=== PATIENT | male | born 1940 | race Caucasian/White ===

== ENCOUNTER → 2017-05-07 | Outpatient (CLI) | payer OTHER ==
[~2017-05-07] MED LIST: ACCUPRIL40 MG PO; CELEBREX 200 M200 MG PO; CENTRUM SILVER1 EAC2 PO; COLACE100 MG PO; ECHINACEA350 MG PO; GARLIC100 MG PO; GREEN TEA EXTR250 MG PO; OMEGA-31000 M1 PO; PERCOCET 10-321 EACH PO; TENORMIN25 MG PO; TURMERIC500 MG PO; VITAMIN E400 UNI2 PO; XARELTO20 MG PO; ZETIA10 MG PO; [UNRECOGNIZED DRUG - OTHER] PO
--- NOTE | ~2017-05-07 | 2DMMODE ---
[facility] [address] 2 D/M-MODE ECHOCARDIOGRAM Name: DANASHY GARZA Room #: REG [facility]#: [id number] Admission: 05/07/17 Attend Phys: Dylan Wright MD Discharge: Date of : 44 Date of Service: 05/07/17 0949 Report #: [id number] THIS REPORT FOR: //name// APPROVED REPORT Study performed: 05/07/2017 08:56:37 EXAM: Comprehensive 2D, Doppler, and color-flow Echocardiogram Patient Location: Echo lab Other Information Study Quality: Good Indications Atrial Fibrillation Hypertension/HDD 2D Dimensions RVDd: 31.43 mm LVEF(%): 59.93 (>50%) IVSd: 12.64 (7-11mm) LVOT Diam: 23.40 (18-24mm) LVDd: 49.96 mm PWd: 11.72 (7-11mm) Ascending Ao: 42.16 (22-36mm) LVDs: 33.95 (25-40mm) Aortic Root: 30.57 mm IVC: 14.00 mm Woodson's LVEF: 59.93 % Volumes Left Atrial Volume (Systole) Single Plane 4CH: 55.91 mL Single Plane 2CH: 37.71 mL LA ESV Index: 23.00 mL/m2 Aortic Valve AoV Peak Guru.: 2.16 m/s AO Peak Gr.: 18.69 mmHg LVOT Max P.08 mmHg LVOT Max V: 1.23 m/s VLADIMIR Vmax: 2.45 cm2 Mitral Valve E/A Ratio: 0.7 MV Decel. Time: 375.30 ms MV E Max Guru.: 0.71 m/s MV A Guru.: 1.06 m/s MV PHT: 108.84 ms IVRT: 152.25 ms [facility] [address] [address] 2 D/M-MODE ECHOCARDIOGRAM Name: SHY CORTEZ Room #: REG [facility]#: [id number] Admission: 05/07/17 Attend Phys: Dylan Wright MD Discharge: Date of : 44 Date of Service: 05/07/17 0949 Report #: [id number] Pulmonary Valve PV Peak Guru.: 1.06 m/s PV Peak Gr.: 4.52 mmHg Pulmonary Vein P Vein S: 0.77 m/s P Vein A: 0.21 m/s P Vein D: 0.46 m/s P Vein A Dur.: 72.7 msec P Vein S/D Ratio: 1.67 Tricuspid Valve TR Peak Guru.: 3.38 m/s RAP Estimate: 5.00 mmHg TR Peak Gr.: 45.77 mmHg Left Ventricle The left ventricle is normal size. Mild concentric left ventricular hypertrophy. The left ventricular systolic function is normal. The left ventricular ejection fraction is within the normal range. LVEF is 55-60%. Mild diastolic dysfunction is present (impaired relaxation pattern). Right Ventricle The right ventricle is normal size. The right ventricular systolic function is normal. Atria The left atrium size is normal. The right atrium size is normal. Aortic Valve Mild aortic valve sclerosis. Mild aortic regurgitation. There is no aortic valvular stenosis. Mitral Valve Mild mitral annular calcification. Trace mitral regurgitation. No evidence of mitral valve stenosis. Tricuspid Valve The tricuspid valve is normal in structure. There is trace tricuspid regurgitation. The right atrial pressure is estimated at 5 mmHg. Pulmonic Valve The pulmonary valve is normal in structure. Trace pulmonic regurgitation. Great Vessels [facility] [address] [place] [address] 2 D/M-MODE ECHOCARDIOGRAM Name: DANASHY GREG Room #: REG [facility]#: [id number] Admission: 05/07/17 Attend Phys: Dylan Wright MD Discharge: Date of : 44 Date of Service: 05/07/17 0949 Report #: [id number] Aortic root is dilated at 4.2 cm IVC is normal in size and collapses >50% with inspiration. <Conclusion> The left ventricle is normal size. Mild concentric left ventricular hypertrophy. The left ventricular systolic function is normal. Mild diastolic dysfunction is present (impaired relaxation pattern). The right ventricle is normal size. The left atrium size is normal. Mild aortic valve sclerosis. Mild aortic regurgitation. Mild mitral annular calcification. Trace mitral regurgitation. <ELECTRONICALLY SIGNED> By: Dylan Wright MD 05/07/1749 8 8 Dylan Wright MD /INF
== END ==
LOC: CV 04-20 11:40
DX: I48.91 Unspecified atrial fibrillation (principal); I08.3 Combined rheumatic disorders of mitral, aortic and tricuspid valves; I10 Essential (primary) hypertension

== ENCOUNTER → 2018-06-21 | Outpatient (CLI) | payer OTHER ==
--- NOTE | ~2018-06-21 | 2DMMODE ---
[facility] [address] [place] [address] 2 D/M-MODE ECHOCARDIOGRAM Name: DANASHY GARZA Room #: REG [facility]#: [id number] Admission: 06/21/18 Attend Phys: Dylan Wright MD Discharge: Date of : 44 Date of Service: 06/21/18 0958 Report #: [id number] THIS REPORT FOR: //name// APPROVED REPORT Study performed: 06/21/2018 08:56:03 EXAM: Comprehensive 2D, Doppler, and color-flow Echocardiogram Patient Location: Echo lab Status: routine BSA: 2.13 HR: 77 bpm BP: 122/92 mmHg Other Information Study Quality: Adequate Indications Atrial Fibrillation 2D Dimensions RVDd: 32.84 mm LVEF(%): 53.07 (>50%) IVSd: 13.54 (7-11mm) LVOT Diam: 20.83 (18-24mm) LVDd: 44.11 mm PWd: 13.62 (7-11mm) Ascending Ao: 42.58 (22-36mm) LVDs: 32.14 (25-40mm) Aortic Root: 37.29 mm IVC: 22.00 mm Woodson's LVEF: 53.07 % Volumes Left Atrial Volume (Systole) Single Plane 4CH: 43.44 mL Single Plane 2CH: 59.87 mL LA ESV Index: 26.00 mL/m2 Aortic Valve AoV Peak Guru.: 1.86 m/s AO Peak Gr.: 13.91 mmHg LVOT Max P.09 mmHg LVOT Max V: 1.01 m/s VLADIMIR Vmax: 1.85 cm2 AI Vmax: 3.91 m/s AI Sedgwick: 2.09 m/s2 AI PHT: 544.17 ms Mitral Valve [facility] [place] [address] 2 D/M-MODE ECHOCARDIOGRAM Name: DANASHY GREG Room #: REG [facility]#: [id number] Admission: 06/21/18 Attend Phys: Dylan Wright MD Discharge: Date of : 44 Date of Service: 06/21/18 0958 Report #: [id number] MV Decel. Time: 210.73 ms MV E Max Guru.: 0.85 m/s IVRT: 107.27 ms Pulmonary Valve PV Peak Guru.: 0.85 m/s PV Peak Gr.: 2.88 mmHg Tricuspid Valve TR Peak Guru.: 2.30 m/s RAP Estimate: 10.00 mmHg TR Peak Gr.: 21.25 mmHg PA Pressure: 31.00 mmHg Left Ventricle The left ventricle is normal size. Mild concentric left ventricular hypertrophy. The left ventricular systolic function is normal. The left ventricular ejection fraction is within the normal range. LVEF is 55%. Right Ventricle The right ventricle is normal size. The right ventricular systolic function is normal. Atria Left atrium is mildly dilated. Right atrium is mildly dilated. Aortic Valve Mild aortic valve sclerosis. Mild aortic regurgitation. There is no aortic valvular stenosis. Mitral Valve Mild mitral annular calcification. Mild mitral regurgitation. No evidence of mitral valve stenosis. Tricuspid Valve The tricuspid valve is normal in structure. Mild tricuspid regurgitation. Pulmonic Valve Pulmonic valve is not well visualized. There is no pulmonic valvular regurgitation. Great Vessels Aortic root is upper limits of normal in size at 3.7 cm. The ascending aorta is mildly dilated at 4.3 cm. IVC is mildly dilated and collapses >50% with inspiration. [facility] [address] [place] [address] 2 D/M-MODE ECHOCARDIOGRAM Name: SHY CORTEZ Room #: REG [facility]#: [id number] Admission: 06/21/18 Attend Phys: Dylan Wright MD Discharge: Date of : 44 Date of Service: 06/21/18 0958 Report #: [id number] Pericardium There is no pericardial effusion. <Conclusion> The left ventricle is normal size. Mild concentric left ventricular hypertrophy. The left ventricular systolic function is normal. The right ventricle is normal size. Left atrium is mildly dilated. Right atrium is mildly dilated. Mild aortic valve sclerosis. Mild aortic regurgitation. Mild mitral regurgitation. Mild tricuspid regurgitation. The ascending aorta is mildly dilated at 4.3 cm. There is no pericardial effusion. <ELECTRONICALLY SIGNED> By: Dylan Wright MD 06/21/1858 7 7 Dylan Wright MD /INF
== END ==
LOC: CV 06:26
DX: I08.3 Combined rheumatic disorders of mitral, aortic and tricuspid valves (principal); I48.0 Paroxysmal atrial fibrillation

== ENCOUNTER 2018-11-11 15:18 | Inpatient (IN) | payer OTHER ==
[~2018-11-11] VITALS: Ht 182.9 cm; Wt 88.4 kg
--- NOTE | ~2018-11-11 | EKG ---
[address] [place] [address] ELECTROCARDIOGRAM REPORT Name: DANASHYSONU GARZA Room #: 205-P [facility] IN M.R.#: [id number] Admission: 11/11/18 Attend Phys: Stanislav Charlton MD Discharge: 11/12/18 Date of : 44 Report #: [id number] THIS REPORT FOR: //name// [facility] Test Date: 2018-11-15 Test Time: 20:29:08 Pat Name: SHY CORTEZ Department: Room: 214 P Gender: M Clerk Guide: loli : 1940 Requested By: Dylan Wright Order Number: [id number] MD: Measurements Intervals [place] Rate: 81 P: VA: QRS: -3 QRSD: 106 T: 33 QT: 427 QTc: 496 Interpretive Statements Atrial fibrillation Low voltage, extremity leads Abnormal R-wave progression, late transition Borderline prolonged QT interval Baseline wander in lead(s) V4,V6 Compared to ECG 11/15/2018 08:29:12 No significant changes [email or web address] By: 28 28 Epiphany Epiphany, /EPI
[2018-11-11 14:30] VITALS: BP 114/74
[2018-11-11 16:03] LABS: INR 1.2; PROTIME 12.7 Seconds (9.3-11.4)
[2018-11-11 16:08] LABS: CHOLESTEROL 154 mg/dL (<200); HDL CHOLESTEROL 31 mg/dL (>40); LDL CHOLESTEROL 85 mg/dL (<100); TRIGLYCERIDE 193 mg/dL (<150); VLDL 39 mg/dL (<40)
[2018-11-11] MEDS ORDERED: CARDIZEM CD240 MG PO (16:10)
[2018-11-11 16:11] LABS: SERUM ASSESSMENT Clear
[2018-11-11] MEDS ORDERED: ZOCOR20 MG PO (16:11)
[2018-11-11] MEDS ORDERED: COZAAR 25 MG TA25 M1 PO (16:11)
--- NOTE | 2018-11-11 18:28 | NUR ---
ASSUMED PATIENT CARE THIS AFTERNOON. PATIENT DIRECT ADMISSION FROM [facility]. UP AD [facility]. NO N/V, N/T STATED. PATIENT STATES NO CHEST PAIN AT THIS TIME. JACKER IN PLACE. TOLERATING DIET. VOIDING PER BATHROOM.
[2018-11-11 19:12] VITALS: BP 98/72
[2018-11-11] MEDS ORDERED: OXYBUTYNIN 5 MG5 M2 PO (19:16)
[2018-11-12 00:06] VITALS: BP 107/69
[2018-11-12 04:34] VITALS: BP 104/64
--- NOTE | 2018-11-12 05:27 | NUR ---
ASSUMED PT CARE AT 1900 WITH NO SIGN OF DISTRESS NOTED IN PT, UPON REPORT PT IS NOTED TO BE SLEEPING. PT IS STABLE UPON WAKING WAKING UP. ASSESSMENT COMPLETED AND DOCUMENTED, DENIES ANY NEED AT THIS TIME. PT IS STABLE, VITAL SIGN STABLE, PT IS NOTED TO BE IN AFIB.
[2018-11-12 07:35] VITALS: BP 96/71
--- NOTE | 2018-11-12 07:57 | 2DMMODE ---
[facility] [address] [place] [address] 2 D/M-MODE ECHOCARDIOGRAM Name: DANASHY GARZA Room #: 205-P ADM IN ..#: [id number] Admission: 11/11/18 Attend Phys: Stanislav Charlton MD Discharge: Date of : 44 Date of Service: 11/12/18 0757 Report #: [id number] THIS REPORT FOR: //name// APPROVED REPORT Study performed: 11/12/2018 07:00:34 EXAM: Comprehensive 2D, Doppler, and color-flow Echocardiogram Patient Location: Bedside Room #: 205 Status: routine BSA: 2.10 HR: 78 bpm BP: 104/64 mmHg Rhythm: Atrial Fibrillation Other Information Study Quality: Adequate Technically limited study due to lung artifact. Indications Chest Pain Hx: Afib, HTN, HLP. 2D Dimensions RVDd: 30.69 mm IVSd: 11.57 (7-11mm) LVOT Diam: 20.91 (18-24mm) LVDd: 47.40 mm PWd: 11.09 (7-11mm) Ascending Ao: 41.36 (22-36mm) LVDs: 33.09 (25-40mm) Aortic Root: 40.27 mm Volumes Left Atrial Volume (Systole) Single Plane 4CH: 51.49 mL Single Plane 2CH: 74.59 mL LA ESV Index: 33.00 mL/m2 Aortic Valve AoV Peak Guru.: 1.72 m/s AO Peak Gr.: 11.97 mmHg LVOT Max P.79 mmHg AO Mean Gr.: 7.54 mmHg AO V2 Mean: 1.32 m/s LVOT Max V: 0.97 m/s AO V2 VTI: 29.43 cm VLADIMIR Vmax: 1.94 cm2 [facility] [address] [place] [address] 2 D/M-MODE ECHOCARDIOGRAM Name: DANASHY GREG Room #: 205-P [facility] IN M.R.#: [id number] Admission: 11/11/18 Attend Phys: Stanislav Charlton MD Discharge: Date of : 44 Date of Service: 11/12/18 0757 Report #: [id number] Mitral Valve MV Decel. Time: 203.07 ms MV E Max Guru.: 0.83 m/s Pulmonary Valve PV Peak Guru.: 0.67 m/s PV Peak Gr.: 1.80 mmHg Tricuspid Valve TR Peak Guru.: 1.92 m/s RAP Estimate: 5.00 mmHg TR Peak Gr.: 14.69 mmHg PA Pressure: 20.00 mmHg Left Ventricle The left ventricle is normal size. There is normal LV segmental wall motion. Mild concentric left ventricular hypertrophy. The left ventricular systolic function is normal. LVEF is 50-55%. This study is not technically sufficient to allow evaluation of the LV diastolic function due to atrial fibrillation. Right Ventricle The right ventricle is normal size. The right ventricular systolic function is normal. Atria Both atria measure at the upper limits of normal. Aortic Valve The aortic valve is moderately sclerotic. Mild aortic regurgitation. There is no aortic valvular stenosis. Mitral Valve Mild mitral annular calcification. Trace mitral regurgitation. No evidence of mitral valve stenosis. Tricuspid Valve The tricuspid valve is normal in structure. Trace tricuspid regurgitation. Estimated PAP is 20mmHg. Pulmonic Valve The pulmonary valve is normal in structure. Trace pulmonic regurgitation. Great Vessels Aortic root is mildly dilated. The ascending aorta is mildly dilated (4.1cm). IVC is normal in size and collapses >50% with inspiration. [facility] [address] [place] [address] 2 D/M-MODE ECHOCARDIOGRAM Name: DANASHY GREG Room #: 205-P [facility] IN .R.#: [id number] Admission: 11/11/18 Attend Phys: Stanislav Charlton MD Discharge: Date of : 44 Date of Service: 11/12/18 0757 Report #: [id number] Pericardium There is no pericardial effusion. <Conclusion> The left ventricular systolic function is normal. There is normal LV segmental wall motion. LVEF 50-55%. The aortic valve is moderately sclerotic. Mild aortic regurgitation, no stenosis Mild mitral annular calcification. Trace mitral regurgitation. The ascending aorta is mildly dilated (4.1cm). There is no pericardial effusion. <ELECTRONICALLY SIGNED> By: Wallace Steven MD, [facility] 11/12/18 0757 075 075 Wallace Steven MD, FAC /INF
[2018-11-12] MEDS ORDERED: IMDUR 30 MG TAB30 M1 PO (08:16)
--- NOTE | 2018-11-12 08:18 | EKG ---
[address] [address] ELECTROCARDIOGRAM REPORT Name: DANASHY Room #: 205-P ADM IN M.R.#: [id number] Admission: 11/11/18 Attend Phys: Stanislav Charlton MD Discharge: Date of : 44 Report #: [id number] THIS REPORT FOR: //name// [facility] Test Date: 2018-11-11 Test Time: 18:21:02 Pat Name: SHY CORTEZ Department: Room: 205 P Gender: M Manager General: Jim JJ : 1940 Requested By: Robina Vizcaino Order Number: [id number] MD: Braxton Ramirez Measurements Intervals [place] Rate: 74 P: CO: QRS: 10 QRSD: 113 T: 59 QT: 450 QTc: 500 Interpretive Statements Atrial fibrillation Borderline intraventricular conduction delay Abnormal R-wave progression, late transition Compared to ECG 11/22/2015 10:51:15 Left anterior fascicular block no longer present ST (T wave) deviation no longer present Electronically Signed On 11-12-2018 8:17:45 SOLAR FABRICATION TECHNICIAN by Braxton Ramirez [email or web address] <ELECTRONICALLY SIGNED> By: Braxton Rmairez MD 11/12/18 0817 182 182 Braxton Ramirez MD /EPI
[2018-11-12 08:57] VITALS: BP 96/71
--- NOTE | 2018-11-12 09:50 | NUR ---
ASSESSMENT COMPLETED AND DOCUMENTED. PT AOX4, NO S/SX OF CARDIAC OR RESP DISTRESS. IV AND TELE REMOVED. EDU ON DISCHARGE INSTRUCTIONS AND RX GIVEN. PT ESCORTED OUT WITH STAFF TO MAIN ENTRANCE TO BE PICKED UP BY FRIEND.
[2018-11-12 09:54] VITALS: BP 96/71
== END 2018-11-12 09:40 | disposition home or self-care (01) | DRG 311 ==
LOC: 3N 15:18 → 2N 15:21
PROVIDERS: Hospitalist; ADMIT Hospitalist
DX: I24.8 Other forms of acute ischemic heart disease (principal); I10 Essential (primary) hypertension; E78.5 Hyperlipidemia, unspecified; I08.0 Rheumatic disorders of both mitral and aortic valves; I48.2 Chronic atrial fibrillation; I77.819 Aortic ectasia, unspecified site; E78.00 Pure hypercholesterolemia, unspecified; G47.30 Sleep apnea, unspecified; Z98.42 Cataract extraction status, left eye; Z98.41 Cataract extraction status, right eye; Z87.891 Personal history of nicotine dependence; Z87.01 Personal history of pneumonia (recurrent)
CPT/HCPCS: 10081

== ENCOUNTER 2018-11-15 07:54 | Observation (INO) | payer OTHER ==
[~2018-11-15] VITALS: Ht 182.9 cm; Wt 90.7 kg
[2018-11-15] VITALS (11 sets, daily range): BP systolic 124–141; BP diastolic 69–90
[~2018-11-15 07:54] MED LIST changes: +CARDIZEM CD240 MG PO; +COZAAR 25 MG TA25 M1 PO; +IMDUR 30 MG TAB30 M1 PO; +OXYBUTYNIN 5 MG5 M2 PO; +ZOCOR20 MG PO
[2018-11-15] MEDS ORDERED: XARELTO20 MG PO (08:25)
[2018-11-15 08:28] LABS: HEMATOCRIT 43.6 % (42.0-52.0); HEMOGLOBIN 15.1 gm/dL (14.0-18.0); MCH 29.5 pg (26.0-34.0); MCHC 34.6 g/dL (28.0-37.0); MCV 85.1 fL (80.0-100.0); RBC 5.12 mil/uL (4.50-6.00); RDW 13.8 % (10.5-14.5); WBC 7.7 thou/uL (4.0-11.0)
[2018-11-15 08:35] LABS: CALCIUM 9.6 mg/dL (8.5-10.1); CREATININE 1.2 mg/dL (0.7-1.3); POTASSIUM 4.2 mmol/L (3.5-5.1)
[2018-11-15] MEDS ORDERED: ASPIR 8181 MG PO (08:36)
--- NOTE | 2018-11-15 08:38 | EKG ---
[place] [address] [facility] [place] [address] ELECTROCARDIOGRAM REPORT Name: SHY CORTEZ [id number] Admission: 11/15/18 Attend Phys: Dylan Wright MD Discharge: Date of : 44 Report #: [id number] THIS REPORT FOR: //name// [facility] Test Date: 2018-11-15 Test Time: 08:29:12 Pat Name: SHY CORTEZ Department: Room: Gender: [place] Picker: Anabel NORRIS : 1940 Requested By: Dylan Wright Order Number: [id number] MD: Wallace Steven Measurements Intervals [place] Rate: 77 P: LA: QRS: 2 QRSD: 111 T: 21 QT: 417 QTc: 472 Interpretive Statements Atrial fibrillation Low voltage, extremity leads Compared to ECG 11/11/2018 18:21:02 No significant change was found Electronically Signed On 11-15-2018 8:38:25 MAILMASTER by Wallace Steven [email or web address] <ELECTRONICALLY SIGNED> By: Wallace Steven MD, [facility] 11/15/18 0838 8 Wallace Steven MD, FACC /EPI
--- NOTE | 2018-11-15 16:16 | NUR ---
PATIENT ARRIVED FROM TREATMENT PLANT OPERATOR AT 1215, ALERT AND ORENTED X4. RT GRION SITE IS D/C/I. AFIB/AFLUTTER ON THE MONITOR AND VSS. ADMISSION COMPLETED AND WILL CONTINUE WITH POC.
--- NOTE | 2018-11-15 16:38 | CATHLAB ---
[facility] [address] [place] [address] INVASIVE PROCEDURE REPORT Name: SHY CORTEZ Room #: 214-P ADM IN .R.#: [id number] Admission: 11/15/18 Attend Phys: Dylan Wright MD Discharge: Date of : 44 Date of Service: 11/15/18 1638 Report #: [id number] THIS REPORT FOR: //name// APPROVED REPORT Study performed: 11/15/2018 10:39:53 Patient Details Patient Status: Out-Patient Room #: The patient is a 78 year-old male Event Personnel Dylan Wright Linter Operator, Zofia Perea, CUSTOMER ADVISOR Monitor, Kristian Rainey RN, Neelam Eid Scryeyo Procedures Performed Art Access - R femoral artery* Left Heart Cath w/or w/o Coronaries [id number] [facility] w/wo Plasty Single RCA 718993 Hemostasis w/ Mynx 49150 Initial Mod Sed Same Phys/QHP Gr5y 378426 17710 Mod Sed Same Phys/QHP Ea 732530 46442 Mod Sed Same Phys/QHP Ea 803078 64344 Mod Sed Same Phys/QHP Ea 368694 Indication Dyspnea, Unstable angina , Chest pain Risk Factors Hypercholesterolemia, Hypertension Procedure Narrative The Right Groin^ was infiltrated with 1% Lidocaine subcutaneous anesthesia. A PINNACLE 4FR Sheath #[id number] sheath was inserted into the RFA^. Coronary angiography was performed using coronary diagnostic catheters. The right coronary system was accessed and visualized with a JR4 catheter. The left coronary system was accessed and visualized with a 4FR JL 5.0 #[id number] catheter. The left ventricle was accessed and visualized with a angled pigtail catheter. Left ventricular/Aortic Valve gradient assessed via catheter pullback. Left ventriculogram was performed in 30 degree projection. Pre-demployment femoral angiogram was performed . Closure device was deployed with a 6 Fr MYNXGRIP 6/7F #[id number]. The patient tolerated the procedure well and there were no complications associated with the procedure. There was no hematoma. Intraoperative Conscious Sedation Sedation start time: 10:51 Case end Time: [facility] [address] [place] [address] INVASIVE PROCEDURE REPORT Name: DANASHY GREG Room #: 214-P [facility] IN ..#: [id number] Admission: 11/15/18 Attend Phys: Dylan Wright MD Discharge: Date of : 44 Date of Service: 11/15/18 1638 Report #: [id number] 12:01 Fentanyl 50 mcg Versed 1 mg Fluoro Time: 16.21 minutes Dose: DAP 01214.80 cGycm2 2113 mGy Contrast Type and Amount: Visipaque 260 ml Coronary Angiography The patient's coronary anatomy is co- dominant. Diagnostic Cath Left Main This is a short segment vessel, with no flow-limiting lesions. LAD This is a moderate size caliber vessel, traversing the anterior wall and wrapping around the apex. There is mild diffuse disease in the proximal and mid segments, 20%. Diagonal 1 This is a patent vessel, with no flow-limiting lesions. Diagonal 2 This is a patent vessel, with no flow-limiting lesions. Circumflex This is a codominant vessel, with mild disease in the proximal mid segments, 30%. OM1 This is a patent vessel, with no flow-limiting lesions. OM2 This is a patent vessel, with no flow-limiting lesions. Right Coronary There is a moderate size caliber vessel, supplying a PDA. There is a severe occlusion in the mid segment, 85%. R PDA This is a patent vessel, with no flow-limiting lesions. Left Ventriculography The left ventricle is normal in size with normal contractility. The left ventricular ejection fraction is estimated to be 50-55%. Hemodynamics The aortic pressure is 155/102 mmHg with a mean of 126 mmHg. The left ventricular pressure is 158/17 mmHg with a mean of mmHg. The left ventricular end diastolic pressure is 28 mmHg. PCI Technique Lesion Percutaneous coronary intervention was performed on the mid right coronary artery. The lesion stenosis prior to intervention was 85% with JESSICA 3 flow. A VISTA 6FR JR 4 #[id number] Guide Catheter was used to engage the ostium. A Luge Wire .014 x 182CM #[id number] Interventional Guidewire was used to cross the lesion. [facility] [address] [place] [address] INVASIVE PROCEDURE REPORT Name: SHY CORTEZ Room #: 214-P [facility] M.R.#: [id number] Admission: 11/15/18 Attend Phys: Dylan Wright MD Discharge: Date of : 42 Date of Service: 11/15/18 1638 Report #: [id number] BALLOON DILATION A Balloon catheter Euphora RX 2.25 x 10 #[id number] was inserted and inflated up to 4.00atm for 4seconds. Additional Inflation: 8.00atm for 18seconds. Additional Inflation: 8.00atm for 13seconds. STENT DEPLOYMENT A drug-eluting stent RESOLUTE NICK RX 2.5 X 12 #[id number] was inserted and inflated up to 18.00atm for 24seconds. A bare metal stent Integrity RX 2.75mm x 12mm was inserted proximal to 2.5mm x 12mm Resolute Nick WILLEM and inflated up to 20 shamar for 27 seconds. POST STENT DEPLOYMENT BALLOON DILATION A Balloon catheter Euphora NC RX 2.75 x 8 #[id number] was inserted and inflated up to 18.00atm for 16seconds. Additional Inflation: 18.00atm for 16seconds. Final angiography reveals 0 % stenosis with JESSICA 3 flow. PCI Technique Lesion 2 Percutaneous coronary intervention was performed on the proximal right coronary artery. The lesion stenosis prior to intervention was 70% with JESSICA 3 flow. Stent Deployment A bare metal stent INTEGRITY RX 2.75 X 12 #[id number] was inserted and inflated up to 18atm for 16seconds. There was plaquing in the proximal segment, appears to have developed a haziness/dissection from the 6 [place] JR4 guide catheter. The patient remained hemodynamically stable and it was decided to cover this area with a bare metal stent. Final angiography reveals 0 % stenosis with JESSICA 3 flow. Conclusion 1. Successful placement of a drug-eluting stent into the mid RCA stenosis. 2. Mild disease in the LAD and codominant left circumflex arteries. 3. Borderline normal LV systolic function. 4. Recommend dual antiplatelet therapy and aggressive risk factor management. <ELECTRONICALLY SIGNED> By: Dylan Wright MD 11/15/18 1638 1638 1638 Dylan Wright MD /RENE
[2018-11-16 00:32] VITALS: BP 108/74
[2018-11-16 03:38] LABS: HEMATOCRIT 40.5 % (42.0-52.0); MCH 29.6 pg (26.0-34.0); MCHC 34.6 g/dL (28.0-37.0); MCV 85.6 fL (80.0-100.0); RBC 4.73 mil/uL (4.50-6.00); RDW 13.5 % (10.5-14.5); WBC 8.1 thou/uL (4.0-11.0)
[2018-11-16 03:58] LABS: ALBUMIN 3.4 g/dL (3.4-5.0); ANION GAP 7 mmol/L (7-16); BUN 14 mg/dL (7-18); CALCIUM 9.5 mg/dL (8.5-10.1); CHLORIDE 104 mmol/L (98-107); CO2 30 mmol/L (21-32); CREATININE 1.2 mg/dL (0.7-1.3); GLUCOSE 110 mg/dL (74-106); POTASSIUM 4.4 mmol/L (3.5-5.1); SGOT 19 U/L (15-37); SGPT 33 U/L (30-65); SODIUM 141 mmol/L (136-145); TOTAL BILIRUBIN 0.7 mg/dL (<0.1-1.0); TOTAL PROTEIN 6.4 g/dL (6.4-8.2); TROPONIN-I <0.06 ng/mL (<0.06)
[2018-11-16 04:45] VITALS: BP 127/69
--- NOTE | 2018-11-16 04:56 | NUR ---
ASSUME CARE 1900. PT/VITALS STABLE. UP AD [facility]. ASSESSMENT CHARTED. PROGRESSING WELL WITH POC. CATH 11/15/18 WITH STENTS X 2 PLACED. PLAN IS POSSIBLE DISCHARGE TODAY. WILL CONTINUE TO MONITOR AND FOLLOW WITH POC
[2018-11-16 07:45] VITALS: BP 146/92
--- NOTE | 2018-11-16 08:02 | EKG ---
[address] [place] [address] ELECTROCARDIOGRAM REPORT Name: SHY CORTEZ Room #: 214-P [facility] M.R.#: [id number] Admission: 11/15/18 Attend Phys: Dylan Wright MD Discharge: Date of : 44 Report #: [id number] THIS REPORT FOR: //name// [facility] Test Date: 2018-11-16 Test Time: 07:22:41 Pat Name: SHY CORTEZ Department: Room: 214 P Gender: M Boat Dock Operator: WILBER : 1940 Requested By: Dylan Wright Order Number: [id number] MD: Wallace Steven Measurements Intervals [place] Rate: 86 P: DE: QRS: -12 QRSD: 113 T: 51 QT: 376 QTc: 450 Interpretive Statements Atrial fibrillation Poor R wave progression Low voltage, extremity leads Compared to ECG 11/15/2018 08:29:12 No significant changes Electronically Signed On 11-16-2018 8:02:40 STAFF TECHNOLOGIST by Wallace Steven [email or web address] <ELECTRONICALLY SIGNED> By: Wallace Steven MD, [facility] 11/16/18801 1 1 Wallace Steven MD, FACC /EPI
[2018-11-16] MEDS ORDERED: CLOPIDOGREL75 MG PO (08:15)
[2018-11-16] MEDS ORDERED: ATORVASTATIN CA40 MG PO (08:16)
--- NOTE | 2018-11-16 09:31 | NUR ---
ASSUMED CARE AT SHIFT CHANGE, ALERT AND ORIENTED X4. AFIB ON THE MONITOR WITH RATE OF 70-150/ MIN, TACHY ON ACTIVITIES AND HEEL LINING PASTER NOTIFIED. ATENOLOL NEW PRISCRBTION, FIRST DOSE GIVEN AND DISCHARGE MEDS UPDATED. DISCHARGE AND MEDICATIONS INSTRTUCTIONS GIVEN TO MANUELITO AND HIS SPOUSE.
[2018-11-16 09:45] VITALS: BP 131/69
[2018-11-16] MEDS ORDERED: ATENOLOL 50MG T50 M1 PO (09:45)
--- NOTE | 2018-11-17 08:13 | D ---
[facility] [place] [address] DISCHARGE SUMMARY Name: SHY CORTEZ Room #: 214-P [facility] [place] Live#: [id number] Admission: 11/15/18 Attend Phys: Dylan Wright MD Discharge: 11/16/18 Date of : 44 Report #: [id number] THIS REPORT FOR: //name// CC: Norris Wright DATE OF SERVICE: 11/16/2018 FINAL DIAGNOSES: 1. Unstable angina, status post coronary intervention. 2. Permanent atrial fibrillation. 3. Hypertension. 4. Hypercholesterolemia. HOSPITAL COURSE: Please see the original consult for full details. The patient has a history of persistent atrial fibrillation, hypertension and hyperlipidemia. He presented with an episode of chest discomfort to the ER in [facility]. He was transferred to [place] for further evaluation. His initial blood tests and troponin levels were negative. He had been on Xarelto and it was decided to let the patient go home and return for elective cardiac catheterization. Please see the cardiac catheterization laboratory for full details. He was found to have a severe occlusion in the RCA, undergoing placement of a drug-eluting stent. There was mild disease in the LAD and left circumflex arteries. He has remained hemodynamically stable overnight. I have given the patient strict instructions regarding the combination of Xarelto, low-dose aspirin and Plavix. He will continue with his other medications including Cardizem and initiate Lipitor instead of Zocor. I will see him back in the office in a few weeks. FINAL DISPOSITION: Plavix 75 mg daily, Lipitor 40 mg daily, diltiazem 240 mg daily, losartan 25 mg daily, Xarelto 20 mg daily and aspirin 81 mg. <ELECTRONICALLY SIGNED> By: Dylan Wright MD 11/17/18812 0 9 Dylan Wright MD /nt
== END 2018-11-16 10:10 | disposition home or self-care (01) ==
LOC: CATH 07:54 → 2N 12:27 → CATH 13:51 → 2N 11-16 10:10
PROVIDERS: ADMIT Internal Medicine Cardiovascular Disease
DX: I25.110 Atherosclerotic heart disease of native coronary artery with unstable angina pectoris (principal); I48.91 Unspecified atrial fibrillation; I10 Essential (primary) hypertension; E78.00 Pure hypercholesterolemia, unspecified; Z79.899 Other long term (current) drug therapy

== ENCOUNTER → 2018-11-22 | Outpatient (CLI) | payer OTHER ==
[~2018-11-22] MED LIST changes: +ASPIR 8181 MG PO; +ATENOLOL 50MG T50 M1 PO; +ATORVASTATIN CA40 MG PO; +CLOPIDOGREL75 MG PO
== END | disposition home or self-care (01) ==
LOC: ULTRA 14:08
DX: I72.8 Aneurysm of other specified arteries (principal); M17.11 Unilateral primary osteoarthritis, right knee; Z79.82 Long term (current) use of aspirin; Z79.899 Other long term (current) drug therapy

== ENCOUNTER → 2019-06-27 | Outpatient (CLI) | payer OTHER | LOC: NUC 07:11 | DX: I48.2 Chronic atrial fibrillation (principal); I25.10 Atherosclerotic heart disease of native coronary artery without angina pectoris; E78.5 Hyperlipidemia, unspecified; I10 Essential (primary) hypertension; Z87.891 Personal history of nicotine dependence; Z79.899 Other long term (current) drug therapy ==

== ENCOUNTER → 2019-12-29 | Outpatient (CLI) | payer OTHER | LOC: SJCVC 12:10 | DX: I44.5 Left posterior fascicular block (principal); R94.31 Abnormal electrocardiogram [ECG] [EKG]; I25.10 Atherosclerotic heart disease of native coronary artery without angina pectoris; I48.0 Paroxysmal atrial fibrillation; G47.33 Obstructive sleep apnea (adult) (pediatric); I10 Essential (primary) hypertension; E78.00 Pure hypercholesterolemia, unspecified; Z96.651 Presence of right artificial knee joint; Z79.899 Other long term (current) drug therapy; Z87.891 Personal history of nicotine dependence ==

== ENCOUNTER → 2020-05-04 | Outpatient (CLI) | payer OTHER | LOC: SJCVCIMAG 07:40 | PROVIDERS: ATTEND Internal Medicine Cardiovascular Disease | DX: R94.31 Abnormal electrocardiogram [ECG] [EKG] (principal); I08.3 Combined rheumatic disorders of mitral, aortic and tricuspid valves; I45.2 Bifascicular block; I48.91 Unspecified atrial fibrillation; I25.10 Atherosclerotic heart disease of native coronary artery without angina pectoris; R06.09 Other forms of dyspnea; I10 Essential (primary) hypertension ==

== ENCOUNTER → 2020-05-30 | Outpatient (CLI) | payer OTHER | LOC: SJCVCIMAG 07:13 | PROVIDERS: ATTEND Internal Medicine Cardiovascular Disease | DX: I48.91 Unspecified atrial fibrillation (principal); I25.10 Atherosclerotic heart disease of native coronary artery without angina pectoris; I10 Essential (primary) hypertension; E78.5 Hyperlipidemia, unspecified; E78.00 Pure hypercholesterolemia, unspecified; Z87.891 Personal history of nicotine dependence; Z79.82 Long term (current) use of aspirin; Z79.01 Long term (current) use of anticoagulants; Z98.61 Coronary angioplasty status; Z79.899 Other long term (current) drug therapy ==

== ENCOUNTER → 2021-12-19 | Outpatient (CLI) | payer OTHER | LOC: SJCVC 14:51 | PROVIDERS: ATTEND Internal Medicine Cardiovascular Disease | DX: R94.31 Abnormal electrocardiogram [ECG] [EKG] (principal); I45.10 Unspecified right bundle-branch block; I10 Essential (primary) hypertension; I25.10 Atherosclerotic heart disease of native coronary artery without angina pectoris; I48.91 Unspecified atrial fibrillation; E78.00 Pure hypercholesterolemia, unspecified; G47.30 Sleep apnea, unspecified; R06.00 Dyspnea, unspecified; Z79.82 Long term (current) use of aspirin; Z79.899 Other long term (current) drug therapy; Z87.891 Personal history of nicotine dependence; Z95.818 Presence of other cardiac implants and grafts ==

== ENCOUNTER → 2021-12-30 | Outpatient (CLI) | payer OTHER | LOC: SJCVCIMAG 07:22 | PROVIDERS: ATTEND Internal Medicine Cardiovascular Disease | DX: I08.3 Combined rheumatic disorders of mitral, aortic and tricuspid valves (principal); I25.10 Atherosclerotic heart disease of native coronary artery without angina pectoris; I10 Essential (primary) hypertension; I48.91 Unspecified atrial fibrillation; E78.00 Pure hypercholesterolemia, unspecified; Z79.82 Long term (current) use of aspirin; Z79.899 Other long term (current) drug therapy; R00.1 Bradycardia, unspecified; R00.2 Palpitations; Z87.891 Personal history of nicotine dependence; R06.00 Dyspnea, unspecified ==

== ENCOUNTER → 2022-01-02 | Outpatient (CLI) | payer OTHER ==
[~2022-01-02] VITALS: Ht 182.9 cm; Wt 90.7 kg
[2022-01-02 08:15] VITALS: BP 120/81
[2022-01-02 08:42] LABS: HEMOGLOBIN 12.5 gm/dL (14.0-18.0); MCH 23.3 pg (26.0-34.0); MCHC 31.3 g/dL (28.0-37.0); MCV 74.5 fL (80.0-100.0); RBC 5.37 mil/uL (4.50-6.00); RDW 19.2 % (10.5-14.5); WBC 8.6 thou/uL (4.0-11.0)
[2022-01-02 08:51] LABS: CALCIUM 9.5 mg/dL (8.5-10.1); CREATININE 1.4 mg/dL (0.7-1.3); POTASSIUM 4.5 mmol/L (3.5-5.1)
--- NOTE | 2022-01-02 12:43 | EKG ---
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
--- NOTE | 2022-01-02 14:35 | CATHLAB ---
[facility] [place] [address] INVASIVE PROCEDURE REPORT Name: RHINA CORTEZ Room #: REG [facility].#: [id number] Admission: 01/02/22 Attend Phys: Dylan Wright MD Discharge: Date of : 44 Report #: [id number] THIS REPORT FOR: cc: Norris Light Damon DO Park, Jin S. MD ~ APPROVED REPORT Study performed: 01/02/2022 09:05:35 Patient Details Patient Status: Out-Patient Room #: The patient is a 81 year-old male Event Personnel Dylan Wright Order Worker, Zofia Perea RTR, Segundo Kumar Amy RTR Monitor, Bijan Storm RN RN, Nikolai Cai RN sanding machine buffer Performed Art Access - R femoral artery* Left Heart Cath w/or w/o Coronaries [id number] [facility] Hemostasis with Manual pressure 13215 Initial Mod Sed Same Phys/QHP Gr5y [id number] 09126 Mod Sed Same Phys/QHP Ea [id number] Indication Dyspnea, Positive stress test Risk Factors HypercholesterolemiaPhysical Activity, Coronary Artery DiseaseHypertension Previous Procedures/Diagnoses Previous PCI Procedure Narrative The Right Groin^ was infiltrated with 1% Lidocaine subcutaneous anesthesia. A PINNACLE 4FR Sheath #[id number] sheath was inserted into the RFA^. Coronary angiography was performed using coronary diagnostic catheters. The right coronary system was accessed and visualized with a JR4 catheter. The left coronary system was accessed and visualized with a 4FR JL 5.0 #[id number] catheter. The left ventricle was accessed and visualized with a PIGTAIL catheter. Hemostasis was obtained with manual pressure following sheath removal without any [facility] [address] [place] [address] INVASIVE PROCEDURE REPORT Name: RHINA CORTEZ Room #: REG [facility]#: [id number] Admission: 01/02/22 Attend Phys: Dylan Wright MD Discharge: Date of : 44 Report #: [id number] complications. The patient tolerated the procedure well and there were no complications associated with the procedure. There was no hematoma. Intraoperative Conscious Sedation Sedation start time: 9:20 Case end Time: 9:51 Fentanyl 25 mcg Versed 1 mg Fluoro Time: 5.70 minutes Dose: DAP 8199.70 cGycm2 939 mGy Contrast Type and Amount: Visipaque 45 ml Coronary Angiography The patient's coronary anatomy is co- dominant. Diagnostic Cath Left Main The left main artery is a large-caliber vessel, patent with no flow-limiting lesions. LAD The LAD is a moderate-sized caliber vessel, tortuous as it travels down the anterior wall and wraps around the apex. There is mild calcification in the proximal and mid segments. There is mild diffuse disease in the proximal and mid segments, 30%. Diagonal 1 This is a small to moderate-sized caliber vessel, patent with no flow-limiting lesions. Diagonal 2 This is a small to moderate-sized caliber vessel, patent with no flow-limiting lesions. Circumflex The left circumflex is a moderate-sized caliber vessel, codominant. There is mild diffuse disease in the proximal segment, 20%. OM1 There is a moderate-sized caliber vessel, patent with no flow-limiting lesions. OM2 This is a small to moderate-sized caliber vessel, patent with no flow-limiting lesions. OM3 There is a moderate-sized caliber vessel, patent with no flow-limiting lesions. Right Coronary There is a stent in the proximal segment, patent with mild restenosis, 20%. R PDA This is a small to moderate-sized caliber vessel, patent with no flow-limiting lesions. Left Ventriculography Left Ventriculography was not performed. Ejection Fraction was >55% based off patient's Nuclear Cardiac Stress Test. An LVEDP was measured and there is no gradient across the outflow tract. [facility] [address] [place] [address] INVASIVE PROCEDURE REPORT Name: RHINA CORTEZ Room #: REG [facility].#: [id number] Admission: 01/02/22 Attend Phys: Dylan Wright MD Discharge: Date of : 44 Report #: [id number] Hemodynamics The aortic pressure is 124/71 mmHg with a mean of 90 mmHg. The left ventricular pressure is 137/6 mmHg with a mean of mmHg. The left ventricular end diastolic pressure is 11 mmHg. Conclusion 1. There is a patent stent in the RCA with mild restenosis. 2. There is mild disease in the LAD and left circumflex arteries. 3. This is a codominant system. 4. There is normal LV systolic function. 5. Recommend aggressive risk factor management. <ELECTRONICALLY SIGNED> By: Dylan Wright MD 01/02/22 1435 1435 1435 Dylan Wright MD /INF
== END | disposition home or self-care (01) ==
LOC: CATH 06:19
PROVIDERS: ATTEND Internal Medicine Cardiovascular Disease
DX: R94.39 Abnormal result of other cardiovascular function study (principal); I25.10 Atherosclerotic heart disease of native coronary artery without angina pectoris; T82.855A Stenosis of coronary artery stent, initial encounter; I10 Essential (primary) hypertension; E78.00 Pure hypercholesterolemia, unspecified; G47.30 Sleep apnea, unspecified; I48.91 Unspecified atrial fibrillation; Z98.890 Other specified postprocedural states; Z79.899 Other long term (current) drug therapy; Z96.651 Presence of right artificial knee joint; Z87.891 Personal history of nicotine dependence; Z98.41 Cataract extraction status, right eye; Z98.42 Cataract extraction status, left eye; Z90.49 Acquired absence of other specified parts of digestive tract; Y83.8 Other surgical procedures as the cause of abnormal reaction of the patient, or of later complication, without mention of misadventure at the time of the procedure